=== PATIENT | female | born 1995 | race Caucasian/White ===

== ENCOUNTER 2017-08-03 22:43 | Inpatient (IN) | payer MEDICAID ==
[2017-08-04 00:51] LABS: ADD MAN DIFF? NO
[2017-08-04 00:54] LABS: BASOPHIL # 0.1 10^3/ul (0.0-0.1); BASOPHILS % 0.7 % (0.0-2.0); EOSINOPHILS # 0.2 10^3/ul (0.0-0.5); EOSINOPHILS % 3.2 % (0.0-7.0); HEMATOCRIT 33.2 % (37.0-47.0); HEMOGLOBIN 11.8 g/dl (12.0-16.0); LYMPHOCYTES % 28.5 % (18.0-55.0); MEAN CORPUSCULAR HEMOGLOBIN 32.4 pg (29.0-33.0); MEAN CORPUSCULAR HGB CONC 35.5 g/dl (32.0-37.0); MEAN CORPUSCULAR VOLUME 91.2 fl (72.0-104.0); MEAN PLATELET VOLUME 11.1 fl (7.4-10.4); MONOCYTE # 0.7 10^3/ul (0.3-0.9); MONOCYTES % 9.5 % (0.0-13.0); NEUTROPHIL # 3.9 10^3/ul (1.6-7.5); NEUTROPHILS % 56.4 % (30.0-74.0); PLATELET COUNT 171 10^3/UL (140-415); RED BLOOD COUNT 3.64 10^6/ul (4.20-5.40); RED CELL DISTRIBUTION WIDTH 12.9 % (11.5-14.5)
[2017-08-04 00:54] LABS: WHITE BLOOD COUNT 6.9 10^3/ul (4.8-10.8)
[2017-08-04 01:18] LABS: ALANINE AMINOTRANSFERASE 23 IU/L (13-69); ALBUMIN 3.4 g/dl (3.3-4.9); ALBUMIN/GLOBULIN RATIO 1.06; ALKALINE PHOSPHATASE 204 IU/L (42-121); ANION GAP 9 (8-16); ASPARTATE AMINO TRANSFERASE 22 IU/L (15-46); BILIRUBIN,INDIRECT 0.4 mg/dl (0-1.1); BILIRUBIN,TOTAL 0.4 mg/dl (0.2-1.3); BLOOD UREA NITROGEN 13 mg/dl (7-20); CALCIUM 9.1 mg/dl (8.4-10.2); CARBON DIOXIDE 24 mmol/L (21-31); CHLORIDE 108 mmol/L (97-110); CREATININE 0.92 mg/dl (0.44-1.00); GLUCOSE 93 mg/dl (70-220); POTASSIUM 3.9 mmol/L (3.5-5.1); SODIUM 137 mmol/L (135-144); TOTAL PROTEIN 6.6 g/dl (6.1-8.1); URIC ACID 6.1 mg/dl (3.1-7.9)
[2017-08-04 01:19] LABS: ADD UMIC YES; UR AMORPHOUS CRYSTAL FEW /HPF (NONE SEEN); UR ASCORBIC ACID NEGATIVE (NEGATIVE); UR BACTERIA MANY /HPF (NONE SEEN); UR BILIRUBIN (Dip) NEGATIVE (NEGATIVE); UR BLOOD (Dip) NEGATIVE (NEGATIVE); UR CALCIUM OXALATE CRYSTAL MODERATE /HPF (NONE SEEN); UR CLARITY CLOUDY (CLEAR); UR COLOR AMBER (YELLOW); UR GLUCOSE (Dip) NEGATIVE (NEGATIVE); UR KETONES (Dip) TRACE mg/dL (NEGATIVE); UR LEUKOCYTE ESTERASE (Dip) 1+ Leu/ul (NEGATIVE); UR MUCUS FEW /HPF (NONE SEEN); UR NITRITE (Dip) NEGATIVE (NEGATIVE); UR RBC 4 /HPF (0-5); UR SPECIFIC GRAVITY (Dip) 1.032 (1.003-1.030); UR SQUAMOUS EPITHELIAL CELL MANY /HPF (FEW); UR TOTAL PROTEIN (Dip) 1+ mg/dl (NEGATIVE); UR UROBILINOGEN (Dip) NEGATIVE (NEGATIVE); UR WBC 16 /HPF (0-5)
[2017-08-04 01:24] LABS: INR 0.91; PROTIME 12.3 Sec (11.9-14.9)
[2017-08-04 01:28] LABS: PARTIAL THROMBOPLASTIN TIME 26.4 Sec (25.0-35.0)
[2017-08-04] MEDS ORDERED: LIDOCAINE 1% (MPF) 30 ML INJ INJ (02:30)
[2017-08-04] MEDS ORDERED: MISOPROSTOL 200 MCG TAB PR (02:30)
[2017-08-04] MEDS ORDERED: OXYTOCIN 30 UNITS/LR 500 ML IV (02:30)
[2017-08-04] MEDS ORDERED: METHYLERGONOVINE 0.2 MG INJ IM (02:30)
[2017-08-04] MEDS ORDERED: CARBOPROST 250 MCG INJ IM (02:30)
[2017-08-04] MEDS ORDERED: ACETAMINOPHEN 325 MG TAB PO (03:00)
[2017-08-04] MEDS: LACTATED RINGER'S 1,000 ML IV ×5 (03:15→23:35)
[2017-08-04] MEDS: DINOPROSTONE 10 MG VAG SUPP VAG (04:01)
[2017-08-04 04:49] LABS: HEPATITIS B SURFACE ANTIGEN NEGATIVE (NEGATIVE)
[2017-08-04] MEDS: BUTORPHANOL 2 MG INJ IV ×2 (10:34→13:27)
[2017-08-04] MEDS ORDERED: FENTAnyl 2MCG/ML-ROPIV 0.2% 100 ML (15:16)
[2017-08-04] MEDS ORDERED: ONDANSETRON 4 MG INJ IV (15:30)
[2017-08-04] MEDS ORDERED: DIPHENHYDRAMINE 50 MG INJ IV (15:30)
[2017-08-04] MEDS ORDERED: NALOXONE (0.4 MG/ML) INJ IV (15:30)
[2017-08-04] MEDS ORDERED: EPHEDrine SULFATE 50 MG/5 ML SYG IV (15:30)
[2017-08-04] MEDS: FENTAnyl 2MCG/ML-ROPIV 0.2% 100 ML BAG EPI (15:46)
[2017-08-04 17:04] LABS: RAPID PLASMA REAGIN NONREACTIVE (NR)
[2017-08-04] MEDS: MINERAL OIL LIGHT 10 ML VIAL TOP (18:00)
[2017-08-05] MEDS: FENTAnyl 2MCG/ML-ROPIV 0.2% 100 ML BAG EPI (01:10)
[2017-08-05] MEDS: LACTATED RINGER'S 1,000 ML IV (05:44)
[2017-08-05] MEDS: OXYTOCIN 30 UNITS/LR 500 ML IV ×2 (10:34→11:00)
[2017-08-05] MEDS: IBUPROFEN 600 MG TAB PO (10:55)
[2017-08-05] MEDS: LACTATED RINGER'S 1,000 ML IV* (12:14)
[2017-08-05] MEDS ORDERED: OXYTOCIN 30 UNITS/LR 500 ML IV ×2 (12:14→12:30)
[2017-08-05] MEDS ORDERED: MAGNESIUM HYDROXIDE 30ML CUP PO (12:30)
[2017-08-05] MEDS ORDERED: MISOPROSTOL 200 MCG TAB PR (12:30)
[2017-08-05] MEDS ORDERED: DIPHENHYDRAMINE 25 MG CAP PO (12:30)
[2017-08-05] MEDS ORDERED: ZOLPIDEM 5 MG TAB PO (12:30)
[2017-08-05] MEDS ORDERED: METHYLERGONOVINE 0.2 MG INJ IM (12:30)
[2017-08-05] MEDS ORDERED: ACETAMINOPHEN 325 MG TAB PO (12:30)
[2017-08-05] MEDS ORDERED: SENNA/DOCUSATE NA (8.6MG/50MG) TAB PO (12:30)
[2017-08-05] MEDS ORDERED: CARBOPROST 250 MCG INJ IM (12:30)
[2017-08-05] MEDS: LANOLIN 7 GM TUBE TOP (15:13)
[2017-08-05] MEDS: BENZOCAINE 20% 56 ML SPRAY TOP (15:13)
[2017-08-05] MEDS: WITCH HAZEL/GLYCERIN PAD PR (15:13)
[2017-08-05] MEDS: IBUPROFEN 800 MG TAB PO ×2 (17:29→23:38)
[2017-08-06] MEDS: IBUPROFEN 800 MG TAB PO ×4 (05:26→23:24)
[2017-08-06 09:29] LABS: ADD MAN DIFF? NO
[2017-08-06 09:33] LABS: WHITE BLOOD COUNT 12.7 10^3/ul (4.8-10.8)
[2017-08-06 09:33] LABS: BASOPHIL # 0.1 10^3/ul (0.0-0.1); BASOPHILS % 0.4 % (0.0-2.0); EOSINOPHILS # 0.1 10^3/ul (0.0-0.5); EOSINOPHILS % 1.1 % (0.0-7.0); HEMATOCRIT 34.5 % (37.0-47.0); LYMPHOCYTES # 1.8 10^3/ul (0.8-2.9); LYMPHOCYTES % 14.1 % (18.0-55.0); MEAN CORPUSCULAR HEMOGLOBIN 32.2 pg (29.0-33.0); MEAN CORPUSCULAR HGB CONC 34.8 g/dl (32.0-37.0); MEAN CORPUSCULAR VOLUME 92.5 fl (72.0-104.0); MEAN PLATELET VOLUME 11.1 fl (7.4-10.4); MONOCYTE # 0.5 10^3/ul (0.3-0.9); MONOCYTES % 3.7 % (0.0-13.0); NEUTROPHIL # 10.1 10^3/ul (1.6-7.5); NEUTROPHILS % 79.9 % (30.0-74.0); PLATELET COUNT 154 10^3/UL (140-415); RED BLOOD COUNT 3.73 10^6/ul (4.20-5.40); RED CELL DISTRIBUTION WIDTH 13.1 % (11.5-14.5)
[2017-08-06] MEDS: HYDROCODONE/APAP (5/325) TAB PO (15:10)
[2017-08-07] MEDS: IBUPROFEN 800 MG TAB PO ×2 (05:29→11:29)
[2017-08-07] MEDS: MEASLES,MUMPS,RUBELLA VACCINE INJ SC* (08:39)
[2017-08-07] MEDS: VARICELLA VACCINE LIVE/PF 1,350 UNIT/0.5 ML ML SC* (09:00)
[2017-08-07] MEDS: DIPHTH/TET/ACEL PERTUSS (ADULT) 0.5 ML VIAL IM* (11:29)
== END 2017-08-07 14:46 | disposition home or self-care (01) | DRG 775 ==
LOC: OBT 22:43 → PP1 08-05 12:06 → L-D 22:46
PROC: 10E0XZZ Delivery of Products of Conception, External Approach (ICD-10-PCS; principal; 2017-08-04)
PROC: 3E033VJ Introduction of Other Hormone into Peripheral Vein, Percutaneous Approach (ICD-10-PCS; 2017-08-04)
DX: O48.0 Post-term pregnancy (principal); Z3A.40 40 weeks gestation of pregnancy; Z37.0 Single live birth
CPT/HCPCS: 36415; 62319; 76815; 76818; 80053; 81001; 84560; 85025; 85610; 85730; 86592; 86850; 86900; 86901; 87340; 90715